=== PATIENT | female | born 1940 | race Caucasian/White ===

== ENCOUNTER 2017-07-31 15:50 | Outpatient (CLI) | payer MEDICARE, OTHER ==
--- NOTE | 2017-07-31 16:18 | XRAY Report ---
Procedure Date: 07/31/2017 Accession Number: [id number] / [id number] Procedure: XRN - Hip w/Pelvis 2-3V LT CPT Code: FULL RESULT: EXAM: Hip w/Pelvis 2-3V LT DATE: 07/31/2017 4:06 PM CLINICAL HISTORY: CHRONIC L HIP PAIN COMPARISON: 06/02/2010 TECHNIQUE: 1 view of the pelvis and 1 view of the hip. FINDINGS: Bones: Right hip replacement. No evidence of acute fracture. Joints: Severe left hip osteoarthritis, with bulky osteophytes. Soft Tissues: Normal. No soft tissue swelling. IMPRESSION: Severe left hip osteoarthritis. Right hip replacement. RAD[facility]
== END 2017-07-31 15:51 | disposition home or self-care (01) ==
LOC: DI.N 15:50
PROVIDERS: ATTEND Internal Medicine
DX: M16.12 Unilateral primary osteoarthritis, left hip (principal); Z96.641 Presence of right artificial hip joint

== ENCOUNTER 2018-09-04 11:56 | Outpatient (CLI) | payer MEDICARE, OTHER | END 2018-09-04 11:57 | disposition home or self-care (01) | LOC: DI 11:56 | PROVIDERS: ATTEND Physician Assistant Medical | DX: Z53.9 Procedure and treatment not carried out, unspecified reason (principal) ==

== ENCOUNTER 2018-09-06 14:44 | Outpatient (CLI) | payer MEDICARE, OTHER ==
--- NOTE | 2018-09-08 00:56 | XRAY Report ---
Reason: HIP LOW BACK PAIN Procedure Date: 09/06/2018 Accession Number: [id number] / [id number] Procedure: XR - Lumbar Spine 2 View CPT Code: FULL RESULT: EXAM: LUMBOSACRAL SPINE RADIOGRAPHY EXAM DATE: 09/06/2018 03:08 PM. CLINICAL HISTORY: HIP, LOW BACK PAIN. COMPARISONS: None. TECHNIQUE: 2 views. FINDINGS: Alignment: Normal. No spondylolisthesis or scoliosis. Bones: Five xcc-[id number]-kjeywzx lumbar vertebral bodies are present. No fractures or bone lesions. Disks: Mild disk space narrowing at L3-L4 and mild to moderate disk space narrowing at L4-L5 and L5-S1. Facets: Facet degenerative changes which are most prominent in the lower lumbar spine and lumbosacral junction. Sacroiliac Joints: Unremarkable as visualized. Soft Tissues: Unremarkable. The visualized bowel gas pattern is nonspecific and nonobstructive. Scattered atherosclerotic vascular disease noted. IMPRESSION: Mild degenerative changes of lumbar spine. No radiographic evidence of acute abnormality. RAD[facility]
--- NOTE | 2018-09-08 01:07 | XRAY Report ---
Reason: HIP LOW BACK PAIN Procedure Date: 09/06/2018 Accession Number: [id number] / [id number] Procedure: XR - Hips 2V BILAT CPT Code: FULL RESULT: EXAM: BILATERAL HIP RADIOGRAPHY EXAM DATE: 09/06/2018 03:08 PM. CLINICAL HISTORY: HIP, LOW BACK PAIN. COMPARISON: HIP W/PELVIS 2-3V LT 07/31/2017 4:07 PM. TECHNIQUE: 4 views. FINDINGS: Bones: No radiographic evidence of acute fracture. Right Hip: Right total hip arthroplasty. No periprosthetic fracture or lucency. No hip dislocation or subluxation. Left Hip: Left total hip arthroplasty. No periprosthetic fracture or lucency. No hip dislocation or subluxation. Soft Tissues: Unremarkable as visualized. Other: Degenerative changes of the visualized lower spine. IMPRESSION: Bilateral total hip arthroplasties without radiographic evidence of acute osseous abnormality. RADIA
== END 2018-09-06 14:45 | disposition home or self-care (01) ==
LOC: DI 14:44
PROVIDERS: ATTEND Physician Assistant Medical
DX: M51.36 Other intervertebral disc degeneration, lumbar region (principal); M51.37 Other intervertebral disc degeneration, lumbosacral region; M47.816 Spondylosis without myelopathy or radiculopathy, lumbar region; M47.817 Spondylosis without myelopathy or radiculopathy, lumbosacral region; Z96.643 Presence of artificial hip joint, bilateral; M25.551 Pain in right hip
CPT/HCPCS: 72100; 73521

== ENCOUNTER 2018-09-09 | Outpatient (CLI) | payer MEDICARE, OTHER | END 2018-09-09 10:51 | disposition home or self-care (01) | DX: G47.10 Hypersomnia, unspecified (principal); R06.83 Snoring; G47.8 Other sleep disorders | CPT/HCPCS: 99203; G0463; 99212 ==

== ENCOUNTER 2018-09-16 19:35 | Outpatient (CLI) | payer MEDICARE, OTHER | END 2018-09-16 19:36 | disposition home or self-care (01) | LOC: SC 19:35 | PROVIDERS: ATTEND Internal Medicine Pulmonary Disease | DX: G47.33 Obstructive sleep apnea (adult) (pediatric) (principal); G47.61 Periodic limb movement disorder; E66.9 Obesity, unspecified; Z68.33 Body mass index [BMI] 33.0-33.9, adult | CPT/HCPCS: 95810 ==

== ENCOUNTER 2018-10-23 12:46 | Outpatient (CLI) | payer MEDICARE, OTHER ==
[2018-10-23 13:47] VITALS: BP 122/68
--- NOTE | 2018-10-23 13:47 | SLEEP CARE CONSULTATION ---
Information from patient questionnaire entered by Nohelia Flores. I have reviewed and concur with the information entered by Nohelia Flores. This document represents the service I personally performed and the decisions made by me, Esme Lee RN, MSN, [employer]. History of Present Illness Accompanied by: Spouse Initial Hector Sleepiness Scale score: 2 Current Hector Sleepiness Scale score: 5 Additional HPI information: WENDIE CASTAÑEDA returns with spouse for follow up of the recently performed polysomnography and informed findings. I explained the pathophysiology behind obstructive sleep apnea. We then spent quite a bit of time discussing different treatment options. For mild obstructive sleep apnea, surgery and oral appliance are alternatives to nasal CPAP therapy but in moderate or severe cases, nasal CPAP is the most effective and reliable treatment. I explained how CPAP machine works and what to expect when using the machine. I reviewed the impact of weight changes on sleep apnea and strongly recommended losing weight. After some discussion, the patient opted to discuss her treatment options with driller operator. At this time she would like to just lose weight. [facility] patient education Non Pap treatment pamphlets reviewed and given to patient. Patient counseled not drink alcohol less than 4 hours before bedtime as it can increase snoring and apnea. Patient was cautioned about risks of drowsy driving until sleepiness symptoms resolve. Patient denies drowsy driving. [facility] patient education on snoring and sleep apnea given and reviewed. Sleep Study - Polysomnography Polysomnography findings: The quality of the study is good. The patient had slightly reduced sleep efficiency due to sleep onset insomnia and a prolonged awakening around the bathroom break.. The sleep architecture was relatively normal considering the first-night effect. Respiratory monitoring showed mild obstructive sleep apnea-hypopnea (AHI = 6.4) associated with oxyhemoglobin desaturation and moderate hypoxia (cynthia oxygen saturation of 79%) but not sleep fragmentation. The respiratory events occurred mainly during REM sleep. The patient did not sleep supine during this study (supine AHI = 0.0; non-supine = 6.45). Snore was loud in intensity. There was moderate periodic leg movement of sleep not associated with sleep fragmentation. Cardiac rhythm was normal sinus rhythm with occasional premature ventricular contractions. No abnormal behavior (parasomnia) observed during the night. Allergies and Home Medications Known drug allergies: Yes (morphine, dilaudid, erythromycin) Home medication list reviewed: Yes Allergy and home medication list: valsartan 320mg daily amlodipine 10mg daily HCTZ 25mg daily metoprolol 50mg twice a day paroxitine 40mg daily trazadone 150mg Hs baby aspirin daily D3 1000 iu daily Clindamycin as needed for dental work Review of Systems Review of systems same as previous: No (Right lower quadrant pain in process of evaluation) Physical Exam Blood Pressure: 122/68 Cuff size: long Heart Rate: 60 O2 Saturation: 96 Height: 5 ft 6 in Weight (kg): 210 lb Body Mass Index: 33.9 BMI Classification: Class 1 Impression and Plan 1. Obstructive Sleep Apnea-Hypopnea Syndrome, mild, with lowest oxygen saturation of 79%. Possibly this is the cause of the patients symptoms of intermittent daytime sleepiness. Treatment of her apnea with positive pressure therapy could benefit her hypertension, arrhythmia and depression. As noted above, the patient would like to use weight loss for her treatment of apnea. I advised her to discuss her sleep study results and treatment options with her driller operator. She is to contact this office within in month with choice of treatment if oral appliance or CPAP. Patient asked to have her sleep study results and this visit be sent to her driller operator. Contact information will be obtained by physical therapy coordinator. * Discuss results with driller operator. * Attempt to lose weight. * Avoid alcohol consumption near bedtime. * Contact this office treatment plan. I spent 100% of this 35 minute visit face to face with the patient with greater than 50% of this was spent time counseling the patient and coordination of care.
== END 2018-10-23 12:47 | disposition home or self-care (01) ==
LOC: SC 12:46
PROVIDERS: ATTEND Nurse Practitioner Family
DX: G47.33 Obstructive sleep apnea (adult) (pediatric) (principal)
CPT/HCPCS: 99214; G0463; 99212

== ENCOUNTER 2020-09-03 09:53 | Outpatient (CLI) | payer MEDICARE, OTHER ==
[2020-09-03] MEDS ORDERED: IOPAMIDOL-300 100 ML VIAL ONE (10:02)
[2020-09-03] MEDS ORDERED: IOVERSOL 320 50 ML VIAL ONE (10:02)
[2020-09-03] MEDS ORDERED: IOPAMIDOL-300 100 ML VIAL IVP ONE (11:11)
[2020-09-03] MEDS ORDERED: IOVERSOL 320 50 ML VIAL PO ONE (11:12)
--- NOTE | 2020-09-03 12:06 | CT Report ---
PROCEDURE: Abdomen/Pelvis W INDICATIONS: DIFFUSE ABD PAIN CONTRAST: IV CONTRAST: Isovue 300 ml: 100 PO CONTRAST: Optiray 320 ml50 TECHNIQUE: After the administration of oral and intravenous contrast, 5 mm thick sections acquired from the diap hragms to the symphysis. 5 mm thick coronal and sagittal reformats were acquired. For radiation dos e reduction, the following was used: automated exposure control, adjustment of mA and/or kV accordin g to patient size. COMPARISON: None FINDINGS: Image quality: Excellent. ABDOMEN: Lung bases: Lung bases are clear. Heart size is normal. Solid organs: Liver and spleen are normal in size and enhancement. Gallbladder is unremarkable. Bi liary system is non dilated. Pancreas enhances normally. No adrenal nodules. Kidneys demonstrate n ormal size and enhancement, without hydronephrosis. Peritoneum and bowel: Bowel loops demonstrate normal wall thickness and caliber. No free fluid or a ir. Extensive sigmoid diverticulosis without evidence of diverticulitis. Nodes and vessels: No retroperitoneal or mesenteric adenopathy by size criteria. Aorta and inferior vena cava are normal in size. Small left upper quadrant/left lateral abdominal varicosities. Miscellaneous: No ventral hernias. PELVIS: Genitourinary: Bladder wall thickness is normal. Miscellaneous: No inguinal hernias or adenopathy. Uterus is surgically absent. There is a cystic les ion of the left adnexa with a focal calcification which measures 5.0 x 6.5 x 4.9 cm. The uterus is jimenez rgically absent. Bones: No suspicious bony lesions. No vertebral body compression fractures. Total bilateral hip ar throplasties. Lumbar degenerative change. IMPRESSION: 1. There is a cystic lesion of the left adnexa which measures 6.5 cm in maximum diameter. This can ei ther be a benign lesion or potentially a malignant lesion. 2. Sigmoid diverticulosis. 3. Left abdominal varicosities. Comment: Recommend VETERINARY INSPECTOR consultation. Reviewed by: Malick Chavez MD on 09/03/2020 12:05 PM PDT Approved by: Malick Chavez MD on 09/03/2020 12:05 PM PDT Station ID: [id number]
== END 2020-09-03 09:54 | disposition home or self-care (01) ==
LOC: DI 09:53
PROVIDERS: ATTEND Family Medicine
DX: R93.89 Abnormal findings on diagnostic imaging of other specified body structures (principal); K57.10 Diverticulosis of small intestine without perforation or abscess without bleeding; I86.8 Varicose veins of other specified sites
CPT/HCPCS: 74177; Q9967